=== PATIENT | female | born 1960 ===

== ENCOUNTER → 2024-06-16 00:47 | Outpatient (CLI) | payer MEDICARE, BC, SELFPAY ==
--- NOTE | 2024-06-16 | ETT_ITS ---
APPROVED REPORT Exam: Exercise Treadmill Patient Location: Out-Patient Room/Bed: Stress Nurse: Anny Rubio RN Ordering Provider:OSMANI IZAGUIRRE, Contact Number: [phone] BMI: 24.79 Baseline Rhythm: Sinus Rhythm Indications: Dizziness/giddiness, chest pain, Medical History Medical History: Anemia, depression, heart murmur, HLD, malignant neoplasm of breast, mitral valve pr olapse Cardiac Medications: Bupropion, lexapro, valtrex, magnesium Allergies: Penicillins Cardiac Risk Factors: Family hx, HLD, former smoker Previous Cardiac Procedures: None Pretest Chest Pain Characteristics: No chest pain Exercise History: None Physical Disabilities: None Lung Sounds: Clear to auscultation Heart Sounds: Regular Stress Test Details Test: Exercise stress testing was performed using a Juan Daniel protocol. Rest Stress HR Resting HR Supine: 71 bpm Max Heart Rate (APMHR): 156 bpm Resting HR Standin bpm Target HR (85% APMHR): 133 bpm Max HR Achieved: 124 bpm % of APMHR: 79 Recovery HR: 75 bpm HR response to stress: Normal HR response to stress BP Resting BP Supine: 118/82 mmHg Resting BP Standin/82 mmHg Max BP: 140/74 mmHg Recovery BP: 116/80 mmHg BP response to stress: Normal blood pressure response to stress. ECG Resting ECG: Sinus Rhythm Ectopy: None Stress ECG: Sinus Tachycardia ST Change: Nondiagnostic low heart rate Arrhythmia: None Recovery ECG: Sinus Rhythm Recovery ST Change: Nondiagnostic low heart rate Recovery Arrhythmia: None Clinical Reason for Termination: Dizziness Stress Symptoms: Dizziness, 4/10 chest tightness Exercise duration: 03 min42 sec Highest Stage Reached: Stage 2: 2.5 mph at 12% grade. Exercise capacity: 5.48 METs Angina Score: Non-Limiting Rahman Treadmill Score: 0 Rate Pressure Product: [id number] Stress ECG Conclusion 1. Resting electrocardiogram was normal 2. Patient exercised on the Juan Daniel protocol and completed a workload of 5.48 METS 3. Normal heart rate and blood pressure response to exercise. The patient achieved 79% of predicted heart rate for age 4. There was no electrocardiographic evidence of myocardial ischemia at a submaximal heart rate 5. There were no dysrhythmias Rahman Treadmill Score is 0 which is Moderate risk. Stress Test Summary STAGE Time (mins) Speed (mph) Grade (%) HR BP SpO2 SYMPTOMS METS Supine 71 118/82 97% Standing 85 104/82 1 3 1.7 10 114 132/78 93% Mild chest tightness, 4.5 2 6 2.5 12 122 Chest pain resolved, moderate dizziness 7 1 min recovery 108 140/74 Mod dizzinesss 3 min recovery 80 134/78 6 min recovery 75 116/80 95% All symptoms resolved.
== END ==
PROVIDERS: Visit Provider Physician Assistant
DX: R42 Dizziness and giddiness (principal); R07.89 Other chest pain
CPT/HCPCS: 93017

== ENCOUNTER 2024-07-21 01:39 | Outpatient (CLI) | payer MEDICARE, BC, SELFPAY ==
--- NOTE | 2024-07-21 | DI.NM_ITS ---
APPROVED REPORT Exam: Exercise Treadmill Patient Location: Out-Patient Room/Bed: Stress Nurse: Joelle Munoz RN Ordering Provider:OSMANI IZAGUIRRE, Contact Number: [phone] BMI: 25.32 Baseline Rhythm: Sinus Rhythm Indications: Chest pain Medical History Medical History: Depression, heart murmur, HLD, malignant neoplasm of breast, mitral valve prolapse, bilat. knee pain Cardiac Medications: None Allergies: PCN Cardiac Risk Factors: +Family history of valve disease, +HLD Previous Cardiac Procedures: None Pretest Chest Pain Characteristics: None Exercise History: Physically active Physical Disabilities: None Lung Sounds: LCTA Heart Sounds: Distant/Regular Stress Test Details Test: Exercise stress testing was performed using a Juan Daniel protocol. Nuclear Acquisition: Rest Tc-99m/Stress Tc-99m 1 day Rest Isotope: Tc-99m Sestamibi. Dose: 10.0 Date: 07/21/2024 Injection Time: 09:10 Stress Isotope: Tc-99m Sestamibi. Dose: 31.8 Date: 07/21/2024 Injection Time: 10:50 HR Resting HR Supine: 69 bpm Max Heart Rate (APMHR): 155.941757 bpm Resting HR Standin bpm Target HR (85% APMHR): 131.592073 bpm Max HR Achieved: 138 bpm % of APMHR: 89.03 Recovery HR: 86 bpm HR response to stress: Normal HR response to stress BP Resting BP Supine: 128/86 mmHg Max BP: 152/78 mmHg Recovery BP: 126/80 mmHg BP response to stress: Normal blood pressure response to stress. ECG Resting ECG: Sinus Rhythm Ectopy: None Stress ECG: Sinus Tachycardia ST Change: No significant ST segment changes noted Arrhythmia: None Recovery ECG: Sinus Rhythm Recovery ST Change: No significant ST segment changes noted Recovery Arrhythmia: None Clinical Reason for Termination: Target HR Achieved, Fatigue Stress Symptoms: General Fatigue Exercise duration: 7 min08 sec Highest Stage Reached: Stage 3: 3.4 mph at 14% grade. Exercise capacity: 8.78 METs Angina Score: None Rahman Treadmill Score: 6.7 Rate Pressure Product: [id number] Stress ECG Conclusion 1. Resting electrocardiogram was normal 2. Patient exercised on the Juan Daniel protocol completed a workload of 8.78 METS 3. Normal heart rate and blood pressure response to exercise. The patient achieved 89% of maximal pr edicted heart rate for age 4. There was no electrocardiographic evidence of myocardial ischemia 5. There were no significant dysrhythmias 6. See MPI report Rahman Treadmill Score is 6.7 which is Low risk. Stress Test Summary STAGE Time (mins) Speed (mph) Grade (%) HR BP SpO2 SYMPTOMS METS Supine 69 128/86 98% Standing 78 1 3 1.7 10 105 98% 4.5 2 6 2.5 12 129 95% 7 3 9 3.4 14 136 10 1 min recovery 120 152/78 97% 3 min recovery 88 136/80 6 min recovery 86 126/80 97% Patient presented for stress test today, was pleasant and cooperative with care. Tolerated regular ex ercise stress test (Juan Daniel) with no adverse signs or symptoms. Blood pressures only able to be obtaine d on right arm which was the same arm her IV was located in. Able to take BP's before and after stres s portion of the test due to this. Patient completed test, left ambulatory in no apparent distress. MPI Conclusion Myocardial perfusion is normal. There is no ischemia or evidence of prior infarction Ejection fraction is 67% with normal wall motion Radiologist Interpretation Radiologist agrees with Preflight Mechanic's Interpretation. Radiologist Interpretation by: Fiona Hirsch MD Interpretation Date/Time: 07/22/2024 12:59:28
== END 2024-07-21 01:59 ==
LOC: DI 01:45
PROVIDERS: PCP Physician Assistant; Visit Provider Physician Assistant
DX: R07.89 Other chest pain (principal)
CPT/HCPCS: 78452; 93016; 93018; 93017